=== PATIENT | male | born 1960 | race Caucasian/White ===

== ENCOUNTER 2024-08-27 15:53 | Inpatient (IN) | payer MEDICAID ==
[~2024-08-27] VITALS: Ht 175.3 cm; Wt 84.4 kg
[~2024-08-27 15:53] MED LIST: AMLO10TA80 PO; CEPH500C2 MT; DOXA-15 PO; FAMO20TA8 PO; FOLI0.8T53 PO; HYDR50TA39 PO; MINO2.5T19 PO; SEVE800T8 PO; [UNRECOGNIZED DRUG - CODE] TOP
[2024-08-27 17:39] LABS: BASOPHILS % 0.7 % (0.0-2.0); EOSINOPHILS % 4.6 % (0.0-5.0); HEMOGLOBIN. 11.2 g/dL (14.0-18.0); LYMPHOCYTES % 20.1 % (20.0-50.0); MEAN CORPUSCULAR HEMOGLOBIN 27.6 pg (28.0-32.0); MEAN CORPUSCULAR HGB CONC 31.1 g/dL (31.0-37.0); MEAN CORPUSCULAR VOLUME 88.7 fL (80.0-94.0); MEAN PLATELET VOLUME 7.5 fl (7.4-10.4); MONOCYTES % 5.8 % (2.0-8.0); NEUTROPHILS % 68.8 % (40.0-76.0); PLATELET 237 x1000/uL (130-400); RED BLOOD CELL COUNT 4.05 mill/uL (4.7-6.1); RED CELL DISTRIBUTION WIDTH 21.4 % (11.6-14.6); WHITE BLOOD COUNT 5.1 x1000/uL (4.5-11.0)
[2024-08-27 17:44] LABS: POTASSIUM 5.5 mEq/L (3.5-5.1)
[2024-08-27 17:46] LABS: PROTHROMBIN TIME 11.2 sec (9.6-11.0)
[2024-08-27 17:49] LABS: CLARITY URINE CLEAR (CLEAR); COLOR URINE YELLOW (YELLOW); GLUCOSE URINE 1+ (NEGATIVE); KETONES URINE NEGATIVE (NEGATIVE); LEUKOCYTE ESTERASE URINE TRACE (NEGATIVE); NITRITE URINE NEGATIVE (NEGATIVE); OCCULT BLOOD URINE 1+ (NEGATIVE); PROTEIN URINE 3+ (NEGATIVE); SPECIFIC GRAVITY URINE 1.013 (1.005-1.030); UROBILINOGEN URINE 0.2 E.U./dL (0.2-1.0)
[2024-08-27 18:57] LABS: CREATININE 7.1 mg/dL (0.6-1.3)
[2024-08-27 19:18] LABS: SQUAMOUS EPITHELIAL CELL URINE FEW /lpf (RARE/1+)
[2024-08-27 19:19] LABS: BACTERIA URINE 1+; WBC URINE 15-25 /hpf (0-2)
[2024-08-27] MEDS ORDERED: ACETAMINOPHEN 325MG TABLET PO PRN (20:30)
[2024-08-27] MEDS ORDERED: IPRATROPIUM/ALBUTEROL 0.5-3(2.5)MG/3ML NEB HHN PRN (20:30)
[2024-08-27] MEDS ORDERED: DOCUSATE SODIUM 100MG CAPSULE PO PRN (20:30)
[2024-08-27] MEDS ORDERED: ATORVASTATIN CALCIUM 40MG TABLET PO SCH (21:00)
[2024-08-27] MEDS: SEVELAMER CARBONATE 800 MG TABLET PO SCH (21:00)
[2024-08-27] MEDS: CEFTRIAXONE 1GM/50ML 50 ML IV SCH (21:32)
[2024-08-27] MEDS: ENOXAPARIN 30MG/0.3ML SYR SUBCUT SCH (21:32)
[2024-08-28] VITALS (16 sets, daily range): BP systolic 129–210; BP diastolic 79–126; PULSE 70–96; RESP 18–24; TEMP 36.44736–37.05852; O2SAT 90–100
[2024-08-28 00:16] LABS: POTASSIUM 5.6 mEq/L (3.5-5.1)
[2024-08-28 00:17] LABS: CALCIUM 8.3 mg/dL (8.7-10.4)
[2024-08-28 00:56] LABS: CREATININE 6.4 mg/dL (0.6-1.3)
[2024-08-28 06:43] LABS: CARBON DIOXIDE 20 mEq/L (21-32); CHLORIDE 109 mEq/L (98-107); POTASSIUM 5.8 mEq/L (3.5-5.1); SODIUM 139 mEq/L (136-145)
[2024-08-28 06:44] LABS: CALCIUM 8.1 mg/dL (8.7-10.4)
[2024-08-28 06:49] LABS: GLUCOSE 120 mg/dL (70-105)
[2024-08-28 06:50] LABS: UREA NITROGEN BLOOD 61 mg/dL (9-23)
[2024-08-28 06:51] LABS: PHOSPHORUS 7.7 mg/dL (2.5-4.9)
[2024-08-28] MEDS: GUAIFENESIN 200MG/10ML SUGAR FREE UDC PO PRN (06:52)
[2024-08-28 06:54] LABS: THYROID STIMULATING HORMONE 1.49 uIU/mL (0.55-4.78)
[2024-08-28] MEDS: PANTOPRAZOLE 40MG DR TABLET PO SCH (06:55)
[2024-08-28 07:20] LABS: BASOPHILS % 0.5 % (0.0-2.0); EOSINOPHILS % 4.2 % (0.0-5.0); HEMATOCRIT. 34.8 % (42.0-52.0); HEMOGLOBIN. 11.2 g/dL (14.0-18.0); LYMPHOCYTES % 11.8 % (20.0-50.0); MEAN CORPUSCULAR HEMOGLOBIN 28.5 pg (28.0-32.0); MEAN CORPUSCULAR HGB CONC 32.1 g/dL (31.0-37.0); MEAN CORPUSCULAR VOLUME 88.6 fL (80.0-94.0); MEAN PLATELET VOLUME 7.5 fl (7.4-10.4); MONOCYTES % 5.8 % (2.0-8.0); NEUTROPHILS % 77.7 % (40.0-76.0); PLATELET 224 x1000/uL (130-400); RED BLOOD CELL COUNT 3.92 mill/uL (4.7-6.1); RED CELL DISTRIBUTION WIDTH 21.4 % (11.6-14.6); WHITE BLOOD COUNT 5.7 x1000/uL (4.5-11.0)
[2024-08-28 07:41] LABS: CREATININE 7.1 mg/dL (0.6-1.3)
[2024-08-28] MEDS: DEXTROSE 50% WATER 50ML SYRINGE IV NR (08:00)
[2024-08-28] MEDS: SODIUM ZIRCONIUM CYCLOSILICATE 10GM/PACKET PO NR (08:00)
[2024-08-28] MEDS: SODIUM BICARBONATE 8.4% 50MEQ/50ML SYR IV NR (08:00)
[2024-08-28] MEDS: INSULIN REGULAR (HUMULIN R) 1000UNITS/10ML VIAL IV NR (08:00)
[2024-08-28 08:46] LABS: ALANINE AMINOTRANSFERASE 10 IU/L (10-49); ALBUMIN 3.3 g/dL (3.2-4.8); ASPARTATE AMINOTRANSFERASE 15 IU/L (<34); BILIRUBIN DIRECT 0.1 mg/dL (<=3.0); BILIRUBIN TOTAL 0.4 mg/dL (0.1-1.0); PROTEIN TOTAL 6.1 g/dL (6.0-8.3)
[2024-08-28] MEDS: AMLODIPINE 10MG TABLET PO SCH (09:00)
[2024-08-28] MEDS ORDERED: LIDOCAINE HCL 1% 10 MG/ML 10ML VIAL ONE (09:17)
[2024-08-28] MEDS ORDERED: CEFAZOLIN 1000MG PREMIX 50 ML IV ONE (09:20)
[2024-08-28] MEDS: CEFAZOLIN 1000MG PREMIX 50 ML IV NR (09:20)
[2024-08-28 20:17] LABS: IRON 62 ug/dL (65-175)
[2024-08-28 20:20] LABS: TOTAL IRON BINDING CAPACITY 263 ug/dl (250-425)
[2024-08-28] MEDS: CLONIDINE 0.1MG TABLET PO PRN (22:12)
[2024-08-29] VITALS (12 sets, daily range): BP systolic 139–182; BP diastolic 77–92; PULSE 71–87; RESP 18–24; TEMP 36.50292–37.00296; O2SAT 91–99
[2024-08-29] MEDS: ACETAMINOPHEN 325MG TABLET PO PRN (02:28)
[2024-08-29 07:24] LABS: CHLORIDE 109 mEq/L (98-107); POTASSIUM 5.7 mEq/L (3.5-5.1); SODIUM 139 mEq/L (136-145)
[2024-08-29 07:25] LABS: CALCIUM 8.1 mg/dL (8.7-10.4); CARBON DIOXIDE 21 mEq/L (21-32)
[2024-08-29 07:30] LABS: GLUCOSE 112 mg/dL (70-105); UREA NITROGEN BLOOD 52 mg/dL (9-23)
[2024-08-29 07:32] LABS: PHOSPHORUS 6.1 mg/dL (2.5-4.9)
[2024-08-29 07:40] LABS: BASOPHILS % 0.6 % (0.0-2.0); EOSINOPHILS % 1.9 % (0.0-5.0); HEMATOCRIT. 31.8 % (42.0-52.0); HEMOGLOBIN. 10.2 g/dL (14.0-18.0); LYMPHOCYTES % 14.6 % (20.0-50.0); MEAN CORPUSCULAR HEMOGLOBIN 28.6 pg (28.0-32.0); MEAN CORPUSCULAR HGB CONC 32.2 g/dL (31.0-37.0); MEAN CORPUSCULAR VOLUME 88.8 fL (80.0-94.0); MEAN PLATELET VOLUME 7.4 fl (7.4-10.4); MONOCYTES % 6.4 % (2.0-8.0); NEUTROPHILS % 76.5 % (40.0-76.0); PLATELET 165 x1000/uL (130-400); RED BLOOD CELL COUNT 3.57 mill/uL (4.7-6.1); RED CELL DISTRIBUTION WIDTH 21.5 % (11.6-14.6)
[2024-08-29 08:14] LABS: CREATININE 6.7 mg/dL (0.6-1.3)
[2024-08-29] MEDS: SODIUM ZIRCONIUM CYCLOSILICATE 10GM/PACKET PO NR (10:26)
[2024-08-29 16:05] LABS: POTASSIUM 4.4 mEq/L (3.5-5.1)
[2024-08-29] MEDS ORDERED: SEVE800T8 PO (16:11)
[2024-08-29] MEDS ORDERED: HYDR50TA39 PO (16:11)
[2024-08-29] MEDS ORDERED: AMLO10TA80 PO (16:11)
== END 2024-08-29 19:20 | disposition home or self-care (01) | DRG 206 ==
LOC: ER 15:53 → EDBEDREQ 16:33 → 5WST 18:24 → EDBEDREQSVC 18:31 → EDBEDREQ 18:31 → EDBEDREQSVC 21:23 → 5WST 08-28 01:05 → 7EST 08-28 22:38
PROVIDERS: ADMIT Internal Medicine; ATTEND Internal Medicine
PROC: 5A1D70Z Performance of Urinary Filtration, Intermittent, Less than 6 Hours Per Day (ICD-10-PCS; principal; 2024-08-27)
PROC: 0JH63XZ Insertion of Tunneled Vascular Access Device into Chest Subcutaneous Tissue and Fascia, Percutaneous Approach (ICD-10-PCS; 2024-08-28)
PROC: 02HV33Z Insertion of Infusion Device into Superior Vena Cava, Percutaneous Approach (ICD-10-PCS; 2024-08-28)
PROC: B5181ZA Fluoroscopy of Superior Vena Cava using Low Osmolar Contrast, Guidance (ICD-10-PCS; 2024-08-28)
PROC: 5A1D70Z Performance of Urinary Filtration, Intermittent, Less than 6 Hours Per Day (ICD-10-PCS; 2024-08-29)
DX: T82.868A Thrombosis due to vascular prosthetic devices, implants and grafts, initial encounter (principal); I13.2 Hypertensive heart and chronic kidney disease with heart failure and with stage 5 chronic kidney disease, or end stage renal disease; N18.6 End stage renal disease; T82.41XA Breakdown (mechanical) of vascular dialysis catheter, initial encounter; D63.1 Anemia in chronic kidney disease; E83.39 Other disorders of phosphorus metabolism; E87.5 Hyperkalemia; E11.22 Type 2 diabetes mellitus with diabetic chronic kidney disease; N39.0 Urinary tract infection, site not specified; F17.210 Nicotine dependence, cigarettes, uncomplicated; L03.114 Cellulitis of left upper limb; I50.42 Chronic combined systolic (congestive) and diastolic (congestive) heart failure; T82.7XXA Infection and inflammatory reaction due to other cardiac and vascular devices, implants and grafts, initial encounter; Y83.2 Surgical operation with anastomosis, bypass or graft as the cause of abnormal reaction of the patient, or of later complication, without mention of misadventure at the time of the procedure; Z99.2 Dependence on renal dialysis; Z79.4 Long term (current) use of insulin; Z79.899 Other long term (current) drug therapy; Z86.718 Personal history of other venous thrombosis and embolism; Y92.89 Other specified places as the place of occurrence of the external cause
CPT/HCPCS: 36415; 36581; 71045; 77001; 80048; 80076; 81003; 82728; 83540; 83550; 83735; 84100; 84132; 84443; 85025; 90935; 93005; 99285; C1750; C1769; J0690; J0696; J1642; J1650; J3490